=== PATIENT | female | born 1955 | race Caucasian/White ===

== ENCOUNTER 2017-01-06 05:50 | Inpatient (IN) | payer OTHER ==
--- NOTE | 2016-10-06 14:25 | NUR ---
JOINT CAMP: Patient attended [facility] joint camp, patient is coming in for a total knee replacement. Jonathan Cid patient's will be the one to help patient post discharge and he will be her transportation day of discharge. Patient has three stairs to enter the home and then none inside the home. Patient has never received HH services or been to a SNF. Patient does not need any other assistance that she can think of at this point. She is also not connected with any outpatient physical therapy.
[2017-01-06] VITALS (14 sets, daily range): BP systolic 113–149; BP diastolic 67–83; PULSE 90–123; RESP 12–18; O2SAT 93–97
[~2017-01-06] VITALS: Ht 160 cm; Wt 72.3 kg
[2017-01-06] MEDS: Lactated Ringer's 1,000 ML IV SCH ×3 (05:00→08:13)
[~2017-01-06 05:50] MED LIST: ALLO300T2 PO; ATEN25TA PO; CeFAZolin Inj 2 GM in IV Premix 1 EACH IV ONE; DIVA500T14 PO; FENT1PAT7 TRANSDERM; OXYC-474 PO; QUET200T58 PO; TRIA1TAB5 PO; Vancomycin 1 Gm/200 mL NS Premix IV ONE
[2017-01-06] MEDS ORDERED: CeFAZolin Inj 2 gm / 50mL D5W IV ONE (06:19)
--- NOTE | 2017-01-06 07:20 | PCM.HPANE ---
Patient Data Surgeon Admitting Provider: Attending Provider:Dennis Dhaliwal DO Primary Care Physician:Param Mendoza MD Other Provider:Cristopher Conklin Anesthesia Reason for Visit Left Knee Arthritis Ht/WT & BMI Height (Feet): 5 Height (Inches): 3 Weight (Kilograms): 72.3 Body Mass Index 28.00 Allergies Coded Allergies: Penicillins (Verified Allergy, Severe, RASH, 01/02/17) cyclobenzaprine (Verified Allergy, Unknown, UNKNOWN, 01/02/17) clarithromycin (Verified Adverse Reaction, Severe, N&V, 01/02/17) morphine (Verified Adverse Reaction, Severe, N&V, 01/02/17) zolpidem (Verified Adverse Reaction, Severe, PSYCHOSIS,MENTAL ISSUES, 01/02) Uncoded Allergies: CORTICOSTERIODS (Allergy, Severe, ERYTHEMA MULTIFORME, 01/02/17) Past Anesthesia History Anesthesia History: Denies:: Abnormal Airway, Anesthesia Reactions, Difficult Intubation, Fam Anesthesia Reaction, Fam Malignant Hypertherm, Malignant Hyperthermia Diabetes History Hx Diabetes?: No MRSA MRSA: No Medications Hypertension Medication: Yes (TRIAMTERENE/HCTZ) Home Meds Incl Beta Jeanette: Yes Date Beta Jeanette Taken: Jan 06, 2017 Time Beta Jeanette Taken: 0430 Reported Medications Fentanyl 25 mcg/hr Patch 1 Each Patch.[id number] Mcg TRANSDERM Q72H 10/12/16 Oxycodone (Roxicodone)5 Mg Tablet5 Mg PO TID 10/12/16 Allopurinol 300 Mg [id number] Mg PO MORNING 10/12/16 Quetiapine Fumarate 200 Mg [id number] Mg PO HS 10/12/16 Quetiapine Fumarate 200 Mg [id number] Mg PO BID 10/12/16 Divalproex ER 500 Mg Tab.er.[id number] Mg PO MORNING 10/12/16 Atenolol 25 Mg Zrgrok41 Mg PO DAILY 10/12/16 Discontinued Reported Medications Triamterene/HCTZ 75-50 mg 1 Each Tablet1 Tablet PO MORNING 10/12/16 History History of ENT Problems?: Yes HEENT History: Positive for:: Sinus Problem (SEASONAL ALLERGIES) Denies:: Abnormal Airway Difficult Intubation Dysphagia Glaucoma (HX DRY EYES,KERATOCONJUNCTIVITIS) Hearing Problem TMJ Denture Type: Full- Upper Full- Lower Hx of Heart Problems?: Yes Cardiovascular History: Positive for:: Edema (Ankle Swelling) Hypertension (HYPERLIPIDEMIA) Irregular Heartbeat (PVC's) Denies:: AICD Abdominal Aortic Aneurism Atrial Fibrillation Cardiac Surgery Chest Pain Congestive Heart Failure Heart Murmur Pacemaker Rheumatic Fever Thrombophlebitis Other Cardiac History: HX OF SEVERE THROMBOCYTOPENIA (RESOLVED)-SAW DR. GUZMAN Hx of Respiratory Problem?: No Respiratory History: Denies:: Asthma COPD Chest Surgery Dyspnea Emphysema Hemoptysis Oxygen Administration Pneumonia Pulmonary Embolism Tuberculosis Use of C-PAP Machine Hx Neurologic Problems?: Yes Neurological History: Positive for:: Dizziness (?Seizure-was in psychosis/ hospitalized 4 yrs ago on psych. unit) Seizures (? see above) Denies:: Alzheimer's Disease CVA Dementia Headaches Multiple Sclerosis Parkinson's Disease (NEW ONSET TREMOR 09/2016) Other Neurological Pertinent: HX CHRONIC PAIN Hx of GI Problems?: Yes Gastrointestinal History: Positive for:: Gall Bladder Disease (S/P JANAE) Gastroesphageal Reflux Heartburn Rectal Bleeding (HX HEMORRHOIDS) Denies:: Cirrhosis Diverticulitis (DIVERTICULOSIS) Gastrointestinal Bleeding Hepatitis Hiatal Hernia Hx of Problems?: Yes Genitourinary History: Positive for:: Kidney Stones (S/P BLADDER STONE LITHOLAPAXY) Urinary Tract Infection (Hx of) Denies:: HX of Hemodialysis HX of Peritoneal Dialysis: No Female Hx: Denies:: Currently (POST MENOPAUSE) Endometriosis Pelvic Inflammatory Problems with Breasts? Skin History: Denies:: History Skin Disorders? Pressure Ulcers Hx Musculoskeletal Problems?: Yes Musculoskeletal History: Positive for:: Degenerative Joint Joint Replacement (Current foot Problems S/P RPR) Musculoskeletal Trauma (S/P KNEE SCOPE,MULT FOOT, HAND & FINGER SURGERIES) Osteoarthritis Rheumatoid Arthritis Denies:: Back Injury Systemic Lupus Hx of Psycho/Social Problems?: Yes Psycho Social History: Positive for:: Anxiety Bipolar Disorder (HX OF HOSPITALIZATION-CURRENTLY SEEN @ [facility]) Hx Depression Denies:: Suicide Attempt Hx Surgeries?: Yes (MULT HAND,FINGER & FOOT SURGERIES,KNEE SCOPE,JANAE,HYST, PUNCTAL PLUGS,LITHO) Hx Any Other Health Problems?: Yes Other History: Positive for:: Hospitalization (Psychosis) Denies:: Cancer Endocrine Disease Thyroid Disease History Blood Transfusions: Denies:: Blood Transfusions Hx Diabetes: No Hx Alcohol Use: NoHx Substance Use: No Smoking Status: Former Smoker Have You Smoked inLast 12 mo: YesApprox How Many Cigarettes/day: 30YR HX Stop/Bang Treated for Sleep Apnea?: No Do You Have a CPAP Machine?: No S-Snoring: Do You Snore Loudly: No T-Tired: feel tired, fatigued: Yes O-Obsered: Observed not breath: No P-Blood Pressure: treated: Yes B- Body Mass Index > 35 kg/m2: No A- Age over 50: Yes N- Neck Large Circumference: No G- Gender Male: No BREEZY Total Score: 3 BREEZY Risk Assessment: Low Risk, <3 Yes Risk Assessment Category Category 1A: Patient has history of documented sleep apnea, and HAS NOT received any narcotic, sedative or anesthesia administration during this stay. Category 1B: Patient has history of documented sleep apnea, and HAS received any narcotic , sedative or anesthesia administration during this stay Category 2: Patient has SUSPECTED Obstructive Sleep Apnea, and HAS received any narcotic , sedative or anesthesia administration during this stay. Category 3: Patient has SUSPECTED Obstructive Sleep Apnea and HAS NOT received narcotic, sedative or anesthesia administration during this stay. Category 4: Outpatient in Procedural Areas with known sleep apnea or who screen positive for High Risk via the STOP/BANG questionnaire. Exam Exam Vital Signs Vital Signs Date Time Temp Pulse Resp B/P Pulse Ox O2 Delivery O2 Flow Rate FiO2 01/06/17 06:45 35.5 90 17 137/82 96 Room Air General Appearance: Oriented X3 HEENT/AIRWAY: MP 2 Lungs: Normal Air Movement Heart: Regular Rate/Rhythm Meds/Labs/Diagnostics Admission Meds Current Medications Lactated Ringer's 1,000 ml @ 120 mls/hr Q8H20M IV Last administered on 06:33; Start 01/06/17 at 05:00; Stop 01/06/17 at 13:19 Vancomycin/0.9 % Sod Chloride/ Premix (Vancomycin Inj/ IV Premix) 200 ml @ 133.333 mls/hr 01 ONCE IV Last administered on 01/06/17 06:30; Start at 01:00; Stop 01/06/17 at 02:29; Status DC Plan Impression Patient chart reviewed, patient interviewed and anesthestic plan with risks, benefits, and alternatives discussed, and informed consent obtained. NPO Status: 2330 01/05/17 ASA Physical Status: ASA2 Mod Systemic Disease Anesthetic Plan: GA, Regional Block Bene/Risks/Altern/Consents: Yes HP Complete Prior to Induction: Yes Magno Godwin MD Jan 06, 2017 07:20
[2017-01-06] MEDS ORDERED: Vancomycin 1,000 mg Inj IRRIGATION ONE (07:30)
[2017-01-06] MEDS ORDERED: Ropivacaine-PF 0.5% 30 mL Inj INFILTRATE ONE (09:45)
[2017-01-06] MEDS: 0.9% Sodium Chloride 1,000 ML IV SCH ×3 (09:56→20:00)
[2017-01-06] MEDS ORDERED: Acetaminophen IV 1,000 MG in IV Premix 1 EACH IV PRN (10:00)
[2017-01-06] MEDS ORDERED: Magnesium Hydroxide 10 mL Oral Concentration PO PRN (10:00)
[2017-01-06] MEDS ORDERED: Polyethylene Glycol (PEG) 17 Gm Powder PO PRN (10:00)
[2017-01-06] MEDS ORDERED: diphenhydrAMINE 25 mg Capsule PO PRN (10:00)
[2017-01-06] MEDS ORDERED: HYDROmorphone 1 mg/mL Inj IVPUSH PRN ×2 (10:00→10:25)
[2017-01-06] MEDS ORDERED: Ondansetron 2 mg/mL 2 mL Inj IVPUSH PRN ×2 (10:00→10:25)
[2017-01-06] MEDS ORDERED: Labetalol 5 mg/mL 4 mL Inj IV PRN (10:25)
[2017-01-06] MEDS ORDERED: Lactated Ringer's 1,000 ML IV SCH (10:25)
[2017-01-06] MEDS ORDERED: MetoCLOpramide 5 mg/mL 2 mL Inj IVPUSH PRN (10:25)
[2017-01-06] MEDS ORDERED: Phenylephrine 10,000 mCg/mL Inj IVPUSH PRN (10:25)
[2017-01-06] MEDS ORDERED: Lactated Ringer's 500 ML IV PRN (10:25)
[2017-01-06] MEDS ORDERED: EPHEDrine Sulfate 50 mg/mL Inj IVPUSH PRN (10:25)
[2017-01-06] MEDS: fentaNYL-PF 50 mCg/mL 2 mL Inj IVPUSH PRN ×2 (10:30→10:47)
--- NOTE | 2017-01-06 10:35 | DRSVH ---
PROCEDURE: X-RAY LEFT KNEE, ONE OR TWO VIEWS ([id number]) INDICATIONS: post op TECHNIQUE: 2 view(s) of the knee acquired. COMPARISON: 03/01/2015 FINDINGS: Bones: Patient is status post knee joint arthroplasty. Hardware components are in expected position s. Visualized bony structures are intact. Soft tissues: Overlying postoperative changes are noted. Anterior dressing artifact. IMPRESSION: Acute postoperative changes of total left knee arthroplasty with expected appearance. Dictated by: Hernandez Ortiz M.D. on 01/06/2017 at 10:33 Approved by: Hernandez Ortiz M.D. on 01/06/2017 at 10:33
--- NOTE | 2017-01-06 10:41 | PCM.ANEP1 ---
Post Anesthesia Phase 1 PACU Phase 1 Assessment Vital Signs Vital Signs Date Time Temp Pulse Resp B/P Pulse Ox O2 Delivery O2 Flow Rate FiO2 01/06/17 10:15 99 17 138/76 97 Nasal Cannula 4 01/06/17 10:10 100 13 131/77 95 Simple Mask 10 01/06/17 10:05 100 12 115/80 93 Simple Mask 10 01/06/17 10:00 36.9 99 15 129/82 94 Simple Mask 10 01/06/17 06:45 35.5 90 17 137/82 96 Room Air Anesthetic Administered: GA Level of Alertness: Awake, talking Pain: No Nausea or Vomiting: No Oxygen Delivery: Room Air Lungs: Normal Air Movement Magno Godwin MD Jan 06, 2017 10:41
--- NOTE | 2017-01-06 10:42 | PCM.ANEP2 ---
Post Anesthesia Evaluation ASA/CMS Post Anesthesia VS in Patient's Normal Range?: Yes Resp Stable; Airway Patent?: Yes CV Function & Hydration Stable: Yes Mental Status Recovered?: Yes Pain control Satisfactory?: Yes N/V Control Satisfactory?: Yes Magno Godwin MD Jan 06, 2017 10:42
--- NOTE | 2017-01-06 11:00 | OP ---
[address] [address] OPERATIVE REPORT PATIENT: HUSAM GARCIA : 1955 MR#: [id number] ADMIT: 01/06/2017 JOB ID: [id number] DATE OF SURGERY: 01/06/2017 PREOPERATIVE DIAGNOSIS(ES): Left knee degenerative joint disease. POSTOPERATIVE DIAGNOSIS(ES): Left knee degenerative joint disease. PROCEDURE: Left total knee arthroplasty. SURGEON: Dennis Dhaliwal DO. ASSISTANTS: Idalia Lozano PA-C and Ce Martins DO. INDICATIONS: The patient is a 61-year-old female with left knee severe degenerative joint disease with failed conservative measures and wished to proceed with a left total knee arthroplasty. We discussed the risks, benefits, and possible complications of surgery including, but not limited to, injury to nerves and vessels, infection, bleeding, incomplete relief of symptoms, stiffness, need for additional procedures. The patient had good understanding. All questions were answered. She wished to proceed. We also had a preoperative evaluation to deal with her thrombocytopenia, which is now resolved and normalized, and her other comorbidities. A surgical supplies sterilizer was required for the successful completion of this procedure. PROCEDURE IN DETAIL: The patient was brought to the operating room. She was given a preoperative antibiotic, as well as 1 g TXA preop. The left knee was sterilely prepped and draped, and a tourniquet was used. An incision was made over the anteromedial knee. Dissection was carefully carried through subcutaneous tissue. Electrocautery was used for hemostasis. A split was then made in the quad tendon leaving a cuff of tissue for repair. This was taken along the medial retinaculum and down onto the proximal medial tibial face. A small amount of subperiosteal medial release was performed and then the patella was everted. A portion of the fat pad was removed. The femur was instrumented with the intramedullary guide romelia. I then placed the distal femoral cutting block with a 5-degree distal valgus cut angle and 10 mm planned resection. The block was pinned into position. The cut was performed. Then, I went into the tibia. Using an extramedullary tibial cutting guide, placed this parallel to the long axis of the tibia. Pinned it into position. The cut was performed. I then used a spacer block and felt that we were a bit tight in extension, so two additional mm of distal femur were resected. Next, the femur was sized, felt to be a size 5, perhaps 5 narrow, and 5 degrees external rotation was dialed into the femur in order to match the tibia. The femoral pins were placed, and the distal femoral cutting guide was then placed. The form one cuts were performed and the knee was then trialed, having good full flexion and full extension, with equal gaps medially and laterally. The box cut was performed, and the menisci were removed as well. Again, trials were performed, allowed for full flexion and full extension, with equal gaps. The patella was resurfaced with a free hand type technique, cut from initial thickness of 22 to a thickness of 13. A small partial-thickness lateral release was also performed in order to help the patella track better, and the button was drilled for and trialed and had excellent tracking with 35 mm patellar button. The femur was drilled. The tibia was drilled and punched. The bony surfaces were washed, and the components were cemented into position beginning with the DePuy Attune 3 tibia, followed by the DePuy Attune 5 narrow, fixed bearing femur, followed by the 35 mm patellar button. We elected to use a 6 mm poly, and this was impacted into position after the cement had been allowed to polymerize. The tourniquet was let down. A second gram of TXA was infused, and electrocautery was used for hemostasis. The wound was irrigated and then closed with interrupted #1 Surgilon to close the capsule. Some additional #1 Vicryl was used at either end. The subcu was closed with a running 2-0 V-Loc, and the skin was closed with a running subcuticular 3-0 V-Loc suture. Naropin was added as an adjunct local anesthetic. Sterile dressings were applied. Patient tolerated the procedure well. Blood loss was 50 cc. POSTOPERATIVE PROTOCOL: Have the patient weightbear to tolerance, use a walker for ambulation. I would like her to start ambulation on postop day zero. She will be placed on Percocet 10/325 for pain, as she chronically takes Percocet 5/325, and we will continue with her fentanyl patch. Plan to use aspirin for DVT prophylaxis, as she has a history of thrombocytopenia.
[2017-01-06] MEDS ORDERED: Lactated Ringer's 1,000 ML IV ONE (14:01)
[2017-01-06] MEDS ORDERED: hydrOXYzine Pamoate 25 mg Capsule ONE (14:07)
--- NOTE | 2017-01-06 15:05 | NUR ---
Arrived on Unit Patient arrived on floor from Day surgery in stable condition. Transported in bed. A&Ox3. Reported 8/10 knee pain. 10 mg of Oxycodone given. Denies nausea at this time. Dressing CDI. at bedside. Patient orientated to call light, bed, and visiting hours. Call light and tray table within reach. Will continue to monitor patient hourly.
[2017-01-06] MEDS ORDERED: MetoCLOpramide 5 mg/mL 2 mL Inj ONE (15:36)
[2017-01-06] MEDS ORDERED: Propofol 10,000 mCg/mL 20 mL Inj ONE (15:36)
[2017-01-06] MEDS ORDERED: HYDROmorphone 2 mg/mL Inj ONE (15:36)
[2017-01-06] MEDS ORDERED: Ondansetron 2 mg/mL 2 mL Inj ONE (15:36)
[2017-01-06] MEDS ORDERED: fentaNYL-PF 50 mCg/mL 2 mL Inj ONE (15:36)
[2017-01-06] MEDS: Sodium Chloride LOK Flush 10 mL Syringe IV SCH (16:30)
[2017-01-06] MEDS: CeFAZolin Inj 2 GM in IV Premix 1 EACH IV SCH ×2 (16:43→23:42)
[2017-01-06] MEDS: hydrOXYzine Pamoate 25 mg Capsule PO PRN (20:33)
[2017-01-06] MEDS: Senna-Docusate 8.6-50 mg Tablet PO SCH (20:33)
[2017-01-06] MEDS: oxyCODONE-Acetamin 10-325 mg Tablet PO PRN ×2 (20:34→23:43)
[2017-01-06] MEDS ORDERED: QUEtiapine 300 MG, QUEtiapine 100 MG PO SCH ×2 (21:00)
[2017-01-07] MEDS: Sodium Chloride LOK Flush 10 mL Syringe IV SCH ×3 (00:30→17:48)
--- NOTE | 2017-01-07 02:34 | NUR ---
PAIN: Pt. has been c/o knee pain rated bet. 6 and 8/10. Given IV Toradol, Percocet, Vistaril, Roxicodone, IV Tylenol. Wants all prn meds to be given on time as if on schedule. The lowest reported pain was 5/10, states it feels more like "sore" pain. Wants to be awaken during the night for her pain medications. Keeping ice on affected knee. Has been up to the bathroom for voiding. Able to ambulate with the FWW and one person SBA. Pt. cont. to be tachy. Pulse in the low 100s. On going care.
[2017-01-07] MEDS: hydrOXYzine Pamoate 25 mg Capsule PO PRN ×3 (04:52→21:59)
[2017-01-07] MEDS: oxyCODONE-Acetamin 10-325 mg Tablet PO PRN ×5 (04:53→21:42)
[2017-01-07 04:58] VITALS: BP 120/74; PULSE 99; RESP 17; O2SAT 96
[2017-01-07] MEDS: 0.9% Sodium Chloride 1,000 ML IV SCH ×2 (05:56→15:25)
[2017-01-07 06:05] LABS: BASOPHILS % (AUTO) 0.2 % (0-3); EOSINOPHILS % (AUTO) 0.6 % (0-5); MONOCYTES % (AUTO) 12.6 % (4-12); Mean Corpuscular Hemoglobin 32.9 pg (27.0-35.0); NEUTROPHILS % (AUTO) 48.9 % (40-74); Platelet Count 187 bil/L (150-400)
[2017-01-07] MEDS: Divalproex (QD) 500 mg ER24 Tablet PO SCH (08:36)
[2017-01-07] MEDS: Senna-Docusate 8.6-50 mg Tablet PO SCH ×2 (08:36→20:30)
--- NOTE | 2017-01-07 09:16 | PCM.PNORTH ---
Subjective Date of Service: Jan 07, 2017 Visit Information: Reason for Visit Left Knee Arthritis Surgery/Surgery Date Post-Op Day # Date of Admission: Jan 06, 2017 at 15:35 Hospital Day # Subjective Status post day #1 left total knee arthroplasty. Patient states she is doing pretty well. Her pain is well controlled on the fentanyl patch and Percocet. She is also using Vistaril and Toradol. She does state that her calf has been a little sore. She was up with physical therapy yesterday and walked approximately 20 steps, has also been up to the bathroom already this morning. Postop General: No Complaints, No Shortness of Breath, No Chest Pain Objective Exam Objective Patient is alert and oriented 3. Answering questions appropriately. Sitting up in bed and not in any acute distress today. Dressing is clean dry and intact. Patient able to wiggle toes. Calf is soft and slightly tender, but with dorsiflexion and aggressive toe lift both passively and actively she has no discomfort, pulses intact, sensation is full. Vital Signs and I/O Vital Sign - Last Date Time Temp Pulse Resp B/P Pulse Ox O2 Delivery O2 Flow Rate FiO2 01/07/17 04:58 36.8 99 17 120/74 96 Room Air 01/06/17 11:05 3 Intake and Output 01/06/17 01/06/17 01/07/17 Cumulative From/Thru 15:00 23:00 07:00 01/02/17 08:47 - 01/07/17 05:00 Intake Total 1270 ml 400 ml 1661 ml 3731 ml Output Total 20 ml 950 ml 970 ml Balance 1250 ml 400 ml 711 ml 2761 ml Intake Oral 400 ml 1038 ml 1438 ml IV Total 1270 ml 623 ml 2293 ml Output Urine Total 950 ml 950 ml Estimated Blood Loss 20 ml 20 ml # Bowel Movements 0 0 Lab & Micro Results Laboratory Tests Test 01/07/17 05:15 White Blood Count 4.7th/mm3 (3.8-10.1) Red Blood Count 3.04mil/mm3 (3.90-5.20) Hemoglobin 10.0g/dL (12.0-15.6) Hematocrit 30.4% (35.0-46.0) Mean Corpuscular Volume 100.0fL (81-100) Mean Corpuscular Hemoglobin 32.9pg (27.0-35.0) Mean Corpuscular Hemoglobin Concent 32.9% (32.0-37.0) Red Cell Distribution Width 14.0% (12.3-15.4) Platelet Count 187bil/L (150-400) Neutrophils (%) (Auto) 48.9% (40-74) Lymphocytes (%) (Auto) 37.7% (14-46) Monocytes (%) (Auto) 12.6% (4-12) Eosinophils (%) (Auto) 0.6% (0-5) Basophils (%) (Auto) 0.2% (0-3) Sodium Level 141mEq/L (134-144) Potassium Level 3.9mEq/L (3.5-5.2) Chloride Level 101mEq/L (97-108) Carbon Dioxide Level 29mmol/L (18-29) Blood Urea Nitrogen 23mg/dL (6-24) Creatinine 1.08mg/dL (0.57-1.00) Estimat Glomerular Filtration Rate 74mL/min (>59) Glucose Level 116mg/dL (60-99) Calcium Level 8.5mg/dL (8.5-10.1) Result Diagram: 01/07/17 0515 01/07/17 0515 Assessment & Plan Impression Status post day #1 left total knee arthroplasty. Patient doing well, pain is well-controlled with current regimen. Optimistic that she will be able to go home with her in 1-2 days. Problems: Plan Patient will be weightbearing as tolerated with wheeled walker and will work with physical therapy while here in the hospital. Patient will need to continue outpatient physical therapy next week as well. Patient will utilize aspirin 325 mg by mouth twice a day for 6 weeks for DVT prophylaxis. Patient currently taking Percocet 10/325 mg tablets as well as fentanyl patch for pain control, we will use Vistaril and Toradol as needed while in the hospital to supplement this pain control as patient is on chronic Percocet 5/ 325 mg tablets. Anticipate the patient will remain in the hospital for 1-2 more days and discharged home in the care of her . Rick Malik PA-C Jan 07, 2017 09:16
[2017-01-07 11:17] VITALS: BP 124/71; PULSE 94
[2017-01-07 11:18] VITALS: BP 124/71; PULSE 94; RESP 18; O2SAT 94
--- NOTE | 2017-01-07 14:37 | NUR ---
Social Work-assessment/readiness for discharge: Data:EMR Reviewed. Pt us a 61 y/o female who was admitted on 01/06/17 for left knee arthritis per H&P. Pt's insurance is [employer] and PCP is Param Mendoza MD. EMR reviewed. Pt's readmission score is 4-high risk. SW met with pt at bedside, SW role explained. Pt is alert and oriented x3. Pt resides at home with her Jonathan, who came in during discussion. Pt is independent at baseline and has been cleared by PT for home with outpt PT services. Pt states she already has fww and outpt services set up. SW discussed DPOA/ advanced directive, pt states she has not completed this, information provided. Pt's to provide transport home at discharge. Phone number and plan written on white board in room. No anticipated discharge needs. SW will continue to follow if needs arise. Assessment:Pt who is independent at baseline. Plan:Pt to discharge home when medically stable via POV. PT has cleared pt for outpt Pt, which pt has already set up. No anticipated discharge needs. SW will continue to follow if needs arise. Sade Goodman,EDUCATION DEPARTMENT REGISTRAR
[2017-01-07 17:11] VITALS: BP 91/59; PULSE 94; RESP 16; O2SAT 94
--- NOTE | 2017-01-07 18:34 | NUR ---
Activity Pt up with PT this shift, ambulating in hallway and she states she did the stairs. Pain has been well controlled with percocet and vistaril. Fentanyl patch changed this shift. Reminding Pt to call for assist before getting up
[2017-01-07 19:30] VITALS: BP 113/70; PULSE 97; RESP 17; O2SAT 96
[2017-01-08] MEDS: 0.9% Sodium Chloride 1,000 ML IV SCH (01:56)
--- NOTE | 2017-01-08 02:24 | NUR ---
Pain Patient concerned about getting pain in control. States that pain is 6/10 on pain scale. Pain medication administered. Patient resting after administration of toradol . VSS. Call light within reach. Care continues.
[2017-01-08 04:47] VITALS: BP 102/66; PULSE 90; RESP 17; O2SAT 95
[2017-01-08] MEDS: oxyCODONE-Acetamin 10-325 mg Tablet PO PRN ×2 (05:10→08:11)
[2017-01-08] MEDS: hydrOXYzine Pamoate 25 mg Capsule PO PRN (05:10)
[2017-01-08] MEDS: Sodium Chloride LOK Flush 10 mL Syringe IV SCH ×2 (05:11→08:08)
[2017-01-08 05:42] LABS: BASOPHILS % (AUTO) 0.2 % (0-3); MONOCYTES % (AUTO) 10.9 % (4-12); Mean Corpuscular Hemoglobin 32.7 pg (27.0-35.0); Mean Corpuscular Volume 100.7 fL (81-100); NEUTROPHILS % (AUTO) 59.2 % (40-74); Platelet Count 180 bil/L (150-400)
--- NOTE | 2017-01-08 06:33 | PCM.PNORTH ---
Subjective Date of Service: Jan 08, 2017 Visit Information: Reason for Visit Left Knee Arthritis Surgery/Surgery Date Post-Op Day # Date of Admission: Jan 06, 2017 at 15:35 Hospital Day # Subjective The patient sleeping and easily awaken this morning. No complaints of pain at this time. Discussed patient's performance with therapy and the fact that she may discharge to home today. Patient indicated she wanted to consider waiting and discharging tomorrow and I have advised her that based on her performance and condition we can discharge today when her is home from work. Patient has a few steps to her home and has already worked with therapy on this. Patient also indicates she has set up for outpatient physical therapy to begin next week. Postop General: No Complaints, No Shortness of Breath, No Chest Pain Pain Management: PO Objective Exam Objective Orientation: Alert and oriented 3 and pleasant. Dressing: Interoperative dressing clean dry and intact. Interoperative dressing is changed to postoperative dressing this morning. Wound: Surgical incision wound is in good condition with no focal erythema swelling or drainage. Compartments: Calf and thigh are soft and nontender. Left foot is moderately swollen and patient indicates this is a normal condition for her. Mobility/sensation: We will and sensation are intact that left lower extremity distally. SIRISHA hose: None. Ewing: Absent Drain: Absent Gait: Gait 150 feet with physical therapy yesterday onto 2016. Patient is also past sterile training. Recommendation is for discharge to home with outpatient PT. Vital Signs and I/O Vital Sign - Last Date Time Temp Pulse Resp B/P Pulse Ox O2 Delivery O2 Flow Rate FiO2 01/08/17 04:47 36.4 90 17 102/66 95 Room Air 01/06/17 11:05 3 Intake and Output 01/07/17 01/07/17 01/08/17 Cumulative From/Thru 15:00 23:00 07:00 01/02/17 08:47 - 01/08/17 04:47 Intake Total 1016 ml 800 ml 5547 ml Output Total 550 ml 1520 ml Balance 1016 ml 250 ml 4027 ml Intake Oral 1016 ml 800 ml 3254 ml IV Total 2293 ml Output Urine Total 550 ml 1500 ml Estimated Blood Loss 20 ml # Voids 4 4 # Bowel Movements 1 0 1 Lab & Micro Results Laboratory Tests Test 01/08/17 05:10 White Blood Count 6.1th/mm3 (3.8-10.1) Red Blood Count 2.94mil/mm3 (3.90-5.20) Hemoglobin 9.6g/dL (12.0-15.6) Hematocrit 29.6% (35.0-46.0) Mean Corpuscular Volume 100.7fL (81-100) Mean Corpuscular Hemoglobin 32.7pg (27.0-35.0) Mean Corpuscular Hemoglobin Concent 32.4% (32.0-37.0) Red Cell Distribution Width 14.3% (12.3-15.4) Platelet Count 180bil/L (150-400) Neutrophils (%) (Auto) 59.2% (40-74) Lymphocytes (%) (Auto) 28.5% (14-46) Monocytes (%) (Auto) 10.9% (4-12) Eosinophils (%) (Auto) 1.0% (0-5) Basophils (%) (Auto) 0.2% (0-3) Sodium Level 141mEq/L (134-144) Potassium Level 3.9mEq/L (3.5-5.2) Chloride Level 102mEq/L (97-108) Carbon Dioxide Level 29mmol/L (18-29) Blood Urea Nitrogen 29mg/dL (6-24) Creatinine 1.01mg/dL (0.57-1.00) Estimat Glomerular Filtration Rate 80mL/min (>59) Glucose Level 114mg/dL (60-99) Calcium Level 8.3mg/dL (8.5-10.1) Result Diagram: 01/08/17 0510 01/08/17 0510 General Appearance: Alert, Oriented X3, Cooperative, No Acute Distress Extremities: No Compartment Syndrom Noted, Thigh & Calf Soft/Nontender Postop Sensory Motor: Distal Motor Intact, Movement in Toes, Distal Sensation Intact Activity: Activity per PT, Ambulate with PT (weightbearing as tolerated on left lower extremity using front wheeled walker) Catheters: None Assessment & Plan Impression Patient is a 61-year-old female who is undergone elective left total knee arthroplasty on 01/06/2017. She has performed well with formal physical therapy and has received recommendation for discharge to home. Patient uses chronic Percocet 5 and is currently controlled on Percocet 10 and Vistaril. Problems: Plan Postop day # 2 from left total knee arthroplasty performed on 01/06/[address] Dennis Dhaliwal. Weight bearing status: Weightbearing as tolerated on the left lower extremity Mobility aid: Front wheeled walker Immobilization: None Precautions: Standard postoperative precautions with operative wet process assistant head miller toe cleared for independent ambulation by therapy. Physical therapy: Continue formal physical therapy for mobility, gait and safety while patient is in-house. Patient does have outpatient formal physical therapy arranged to begin soon after discharge. Patient does have 1-2 steps at her home and has succeeded in stair training and has received recommendation for discharge to home. Pain control: Continue by mouth pain control with Percocet 10 and Vistaril. DVT prophylaxis: Continue DVT prophylaxis with ASA 325 mg EC by mouth twice a day 6 weeks postop. Wound care: Keep wound clean dry and covered until seen in office in 2 weeks. Ewing: Absent Dressing: Interoperative dressing is clean dry and intact. Interoperative dressing is changed to postoperative dressing with Silverlon and wound is found to be in good condition. Patient is given several extra manages for home use this morning. Drain: Absent SIRISHA hose: None. Bilateral thigh-high SIRISHA hose will be ordered today. Nursing communication: Nursing please maintain patient on by mouth pain medication in anticipation of discharge later this afternoon after her has returned home from work. 2-week follow-up: Follow-up in 2 weeks at [facility] orthopedic clinic on prearranged appointment with medical provider for wound check and suture removal. 6-week follow-up: Follow-up in 6 weeks at [facility] orthopedic clinic on prearranged appointment with Dr. Dennis Dhaliwal with left two-view knee x-rays on arrival. Plan: Anticipate discharge today on postoperative day 2, 01/08/2017 to home with spouse as caregiver. Discharge instructions: Weightbearing as tolerated on the left lower extremity using front-wheeled walker. Begin formal outpatient physical therapy as soon as possible after discharge. Keep wound clean dry and covered until seen in office in 2 weeks. Work on gentle range of motion at the knee. Patient may bathe on postop day #4 if wound is clean and dry with no drainage. Do not scrub the wound and pat dry after shower. Do not soak the wound in a bathtub, hot or pool. Discharge plan: Anticipate discharge today on postop day 2, 01/08/2017 to home with her as caregiver in the late p.m. after her returns home from work. VTE Prophylaxis: SCDs (SCD at right lower extremity), SIRISHA Hose (bilateral thigh -high SIRISHA hose), Other (ASA 325 EC by mouth twice a day 6 weeks for postoperative DVT prophylaxis) Bakari Sherman PA-C Jan 08, 2017 06:33
--- NOTE | 2017-01-08 06:36 | PCM.DIORTH ---
Ortho Discharge Instruction Date of Service: Jan 08, 2017 Dates of Hospitalization Date of Hospital Admission Jan 06, 2017 at 15:35 Providers Admitting Physician: Dennis Dhaliwal DO Primary Care Physician: Param Mendoza MD Attending Physician: Dennis Dhaliwal DO Diet Discharge Diet: No restrictions Activity Discharge Activity-General: Be up and about, Balance rest and activity, Ice incision 3-5 time/day for 20min, Activity as pain allows, Activity as energy allows, No driving while taking narcotic Left Lower Extremity: Weight Bearing as tolerated Discharge Assist Device: Front Wheeled Walker Dressing and Incisional Care Discharge Dressing Care: Keep dressing clean, dry & intact, Change soiled dressing Discharge Hygiene: May shower (patient may shower on postop day #4 if wound is clean and dry.), DO NOT soak incision under water, NO bathtub, hot tub or whirlpool Additional Instructions Discharge Instructions Postop day # 2 from left total knee arthroplasty performed on 01/06/[address] Dennis Dhaliwal. Weight bearing status: Weightbearing as tolerated on the left lower extremity Mobility aid: Front wheeled walker Immobilization: None Precautions: Standard postoperative precautions with operative team assistant toe cleared for independent ambulation by therapy. Physical therapy: Continue formal physical therapy for mobility, gait and safety while patient is in-house. Patient does have outpatient formal physical therapy arranged to begin soon after discharge. Patient does have 1-2 steps at her home and has succeeded in stair training and has received recommendation for discharge to home. Pain control: Continue by mouth pain control with Percocet 10 and Vistaril. DVT prophylaxis: Continue DVT prophylaxis with ASA 325 mg EC by mouth twice a day 6 weeks postop. Wound care: Keep wound clean dry and covered until seen in office in 2 weeks. Ewing: Absent Dressing: Interoperative dressing is clean dry and intact. Interoperative dressing is changed to postoperative dressing with Silverlon and wound is found to be in good condition. Patient is given several extra manages for home use this morning. Drain: Absent SIRISHA hose: None. Bilateral thigh-high SIRISHA hose will be ordered today. Nursing communication: Nursing please maintain patient on by mouth pain medication in anticipation of discharge later this afternoon after her has returned home from work. 2-week follow-up: Follow-up in 2 weeks at [facility] orthopedic clinic on prearranged appointment with medical provider for wound check and suture removal. 6-week follow-up: Follow-up in 6 weeks at [facility] orthopedic clinic on prearranged appointment with Dr. Dennis Dhaliwal with left two-view knee x-rays on arrival. Plan: Anticipate discharge today on postoperative day 2, 01/08/2017 to home with spouse as caregiver. Discharge instructions: Weightbearing as tolerated on the left lower extremity using front-wheeled walker. Begin formal outpatient physical therapy as soon as possible after discharge. Keep wound clean dry and covered until seen in office in 2 weeks. Work on gentle range of motion at the knee. Patient may bathe on postop day #4 if wound is clean and dry with no drainage. Do not scrub the wound and pat dry after shower. Do not soak the wound in a bathtub, hot or pool. Discharge plan: Anticipate discharge today on postop day 2, 01/08/2017 to home with her as caregiver in the late p.m. after her returns home from work. Follow Up Plan Follow Up Plan Patient will be seen at 2 weeks, 6 weeks and 12 weeks postoperatively. Patient will be seen when necessary in the interim. Follow-up Provider (F9): Dennis Dhaliwal DO Follow-up appointment: Weeks (Patient will be seen at 2 weeks, 6 weeks and 12 weeks postoperatively. Patient will be seen when necessary in the interim.) Call your provider for: Fever, Chills, Shortness of breath, Vomitting, Drainage at incision Bakari Sherman PA-C Jan 08, 2017 06:36
[2017-01-08] MEDS ORDERED: HYDR-3797 PO (06:41)
[2017-01-08] MEDS ORDERED: OXYC-466 PO (06:41)
[2017-01-08] MEDS ORDERED: Aspirin-Expunged Drug, Do Not Renew! PO (06:41)
--- NOTE | 2017-01-08 06:44 | PCM.DC.ORT ---
Discharge Summary Date of Service: Jan 08, 2017 Date of Hospital Admission: Jan 06, 2017 at 15:35 Date of Surgery: Jan 06, 2017 Date of Discharge: Jan 08, 2017 Reason for Hospitalization: Severe left knee osteoarthritis Procedures Performed: Left total knee arthroplasty Hospital Course: Patient was admitted to the preoperative care unit on 01/06/2017 and upon processing was taken to the operating room where her procedure was performed without incident. Patient was then awakened and taken to the postoperative care unit and upon recovery from anesthesia was transferred to the orthopedic care unit where she performed well with physical therapy and received a recommendation for discharge to home on postop day #2. Problems: (1) Osteoarthritis Status: Acute ICD Code: M19.90 Disposition: Discharged to home with spouse as caregiver on 01/08/2017. Orthopedic Follow up Plan: In Two Weeks in my clinic (Patient will be seen at 2 weeks, 6 weeks and 12 weeks postoperatively. Patient will be seen when necessary in the interim.) Discharge Instructions: Postop day # 2 from left total knee arthroplasty performed on 01/06/[address] Dennis Dhaliwal. Weight bearing status: Weightbearing as tolerated on the left lower extremity Mobility aid: Front wheeled walker Immobilization: None Precautions: Standard postoperative precautions with operative casting assistant toe cleared for independent ambulation by therapy. Physical therapy: Continue formal physical therapy for mobility, gait and safety while patient is in-house. Patient does have outpatient formal physical therapy arranged to begin soon after discharge. Patient does have 1-2 steps at her home and has succeeded in stair training and has received recommendation for discharge to home. Pain control: Continue by mouth pain control with Percocet 10 and Vistaril. DVT prophylaxis: Continue DVT prophylaxis with ASA 325 mg EC by mouth twice a day 6 weeks postop. Wound care: Keep wound clean dry and covered until seen in office in 2 weeks. Ewing: Absent Dressing: Interoperative dressing is clean dry and intact. Interoperative dressing is changed to postoperative dressing with Silverlon and wound is found to be in good condition. Patient is given several extra manages for home use this morning. Drain: Absent SIRISHA hose: None. Bilateral thigh-high SIRISHA hose will be ordered today. Nursing communication: Nursing please maintain patient on by mouth pain medication in anticipation of discharge later this afternoon after her has returned home from work. 2-week follow-up: Follow-up in 2 weeks at [facility] orthopedic clinic on prearranged appointment with medical provider for wound check and suture removal. 6-week follow-up: Follow-up in 6 weeks at [facility] orthopedic clinic on prearranged appointment with Dr. Dennis Dhaliwal with left two-view knee x-rays on arrival. Plan: Anticipate discharge today on postoperative day 2, 01/08/2017 to home with spouse as caregiver. Discharge instructions: Weightbearing as tolerated on the left lower extremity using front-wheeled walker. Begin formal outpatient physical therapy as soon as possible after discharge. Keep wound clean dry and covered until seen in office in 2 weeks. Work on gentle range of motion at the knee. Patient may bathe on postop day #4 if wound is clean and dry with no drainage. Do not scrub the wound and pat dry after shower. Do not soak the wound in a bathtub, hot or pool. Discharge plan: Anticipate discharge today on postop day 2, 01/08/2017 to home with her as caregiver in the late p.m. after her returns home from work. Management Plan: Patient will be seen at 2 weeks, 6 weeks and 12 weeks postoperatively. Patient will be seen when necessary in the interim. ([Aspirin-Expunged Drug, Do Not Renew!]) 325 MG TABLET 325 MG PO BID Allopurinol (Allopurinol) 300 Mg Tablet 300 MG PO MORNING Atenolol (Atenolol) 25 Mg Tablet 25 MG PO DAILY Divalproex ER (Divalproex ER) 500 Mg Tab.er.24h 500 MG PO MORNING Fentanyl 25 mcg/hr Patch (Fentanyl 25 mcg/hr Patch) 1 Each Patch.td72 25 MCG TRANSDERM Q72H Hydroxyzine Pamoate (HydrOXYzine Pamoate) 25 Mg Capsule 25 MG PO Q6H PRN PRN restlessness Quetiapine Fumarate (Quetiapine Fumarate) 200 Mg Tablet 200 MG PO BID Quetiapine Fumarate (Quetiapine Fumarate) 200 Mg Tablet 400 MG PO HS oxyCODONE-Acetaminophen 10-325 mg (oxyCODONE-Acetaminophen 10-325 mg) 1 Each Tablet 1 TAB PO Q4-6H PRN PRN For Pain Bakari Sherman PA-C Jan 08, 2017 06:44
[2017-01-08 07:45] VITALS: BP 126/66; RESP 16; O2SAT 93
[2017-01-08 08:00] VITALS: PULSE 100
[2017-01-08] MEDS: Senna-Docusate 8.6-50 mg Tablet PO SCH (08:10)
[2017-01-08] MEDS: Divalproex (QD) 500 mg ER24 Tablet PO SCH (08:10)
--- NOTE | 2017-01-08 10:12 | NUR ---
Discharge Pt was discharged from room 1002 at 1012 via private vehicle home with family. Pt has pre-scheduled apts with [facility] and outpt PT. Connor hosraymon ordered to size. Pt stated that she will put them on when she gets home, as she is already dressed. IV d/c'd intact. Hard copy of RX with pt. No items in the safe and no items in the pharmacy. All discharge teaching and instructions done with at bedside. Pt to take pain medications as prescribed and instructed not to drive while taking narcotics. All questions answered.
== END 2017-01-08 10:11 | disposition home or self-care (01) | DRG 470 ==
LOC: SAS 05:50 → OSC 15:35 → UNDOADMIN 15:43
PROVIDERS: ADMIT Orthopaedic Surgery; ATTEND Orthopaedic Surgery
PROC: 0SRD0J9 Replacement of Left Knee Joint with Synthetic Substitute, Cemented, Open Approach (ICD-10-PCS; principal; 2017-01-06 07:30)
DX: M17.12 Unilateral primary osteoarthritis, left knee (principal); I10 Essential (primary) hypertension; M06.9 Rheumatoid arthritis, unspecified; Z87.891 Personal history of nicotine dependence

== ENCOUNTER 2017-02-17 13:12 | Day surgery (SDC) | payer OTHER ==
[2017-02-17] VITALS (8 sets, daily range): BP systolic 112–130; BP diastolic 66–74; PULSE 72–82; RESP 11–18; O2SAT 94–100
[~2017-02-17] VITALS: Ht 160 cm; Wt 72.0 kg
[~2017-02-17 13:12] MED LIST changes: +Aspirin-Expunged Drug, Do Not Renew! PO; -CeFAZolin Inj 2 GM in IV Premix 1 EACH IV ONE; +HYDR-3797 PO; +OXYC-466 PO; -OXYC-474 PO; -TRIA1TAB5 PO; -Vancomycin 1 Gm/200 mL NS Premix IV ONE
[2017-02-17] MEDS ORDERED: ANTIOBIOTIC PO (13:31)
[2017-02-17] MEDS ORDERED: CeFAZolin Inj 2 gm / 50mL D5W IV ONE (14:07)
[2017-02-17] MEDS ORDERED: Lactated Ringer's 1,000 ML IV ONE (14:11)
[2017-02-17] MEDS ORDERED: Lactated Ringer's 1,000 ML IV SCH (14:30)
[2017-02-17] MEDS ORDERED: Labetalol 5 mg/mL 4 mL Inj IV PRN (14:30)
[2017-02-17] MEDS ORDERED: fentaNYL-PF 50 mCg/mL 2 mL Inj IVPUSH PRN (14:30)
[2017-02-17] MEDS ORDERED: EPHEDrine Sulfate 50 mg/mL Inj IVPUSH PRN (14:30)
[2017-02-17] MEDS ORDERED: Lactated Ringer's 500 ML IV PRN (14:30)
[2017-02-17] MEDS ORDERED: Dexamethasone 4 mg/mL Inj IVPUSH PRN (14:30)
[2017-02-17] MEDS ORDERED: Phenylephrine 10,000 mCg/mL Inj IVPUSH PRN (14:30)
[2017-02-17] MEDS ORDERED: MetoCLOpramide 5 mg/mL 2 mL Inj IVPUSH PRN (14:30)
[2017-02-17] MEDS ORDERED: Ondansetron 2 mg/mL 2 mL Inj IVPUSH PRN (14:30)
--- NOTE | 2017-02-17 14:30 | PCM.HPANE ---
Patient Data Surgeon Admitting Provider: Attending Provider:Dennis Dhaliwal DO Primary Care Physician:Param Mendoza MD Other Provider: Reason for Visit Left Knee Suture Abcess Ht/WT & BMI Height (Feet): 5 Height (Inches): 3 Weight (Kilograms): 72 Body Mass Index 28.00 Allergies Coded Allergies: Penicillins (Verified Allergy, Severe, RASH, 01/02/17) cyclobenzaprine (Verified Allergy, Unknown, NAUSEA, 02/17/17) clarithromycin (Verified Adverse Reaction, Severe, N&V, 01/02/17) morphine (Verified Adverse Reaction, Severe, N&V, 01/02/17) zolpidem (Verified Adverse Reaction, Severe, PSYCHOSIS,MENTAL ISSUES, 01/02) Uncoded Allergies: CORTICOSTERIODS (Allergy, Severe, ERYTHEMA MULTIFORME, 01/02/17) Past Anesthesia History Anesthesia History: Denies:: Abnormal Airway, Anesthesia Reactions, Difficult Intubation, Fam Anesthesia Reaction, Fam Malignant Hypertherm, Malignant Hyperthermia Diabetes History Hx Diabetes?: No MRSA MRSA: No Medications Hypertension Medication: Yes Home Meds Incl Beta Jeanette: Yes Date Beta Jeanette Taken: Feb 17, 2017 Time Beta Jeanette Taken: 0500 Active Scripts oxyCODONE-Acetaminophen 10-325 mg 1 Each Tablet1 Tab PO Q4-6H PRN For Pain #90 TABLET Prov:Bakari Sherman PA-C 01/08/17 [Aspirin] 325 MG TABLET No Conflict [id number] Mg PO BID DVT prophylaxis #1 BOTTLE Prov:Bakari Sherman PA-C 01/08/17 Reported Medications [Antiobiotic] No Conflict Check1 Tab PO QID 02/17/17 Fentanyl 25 mcg/hr Patch 1 Each Patch.[id number] Mcg TRANSDERM Q72H 10/12/16 Allopurinol 300 Mg [id number] Mg PO MORNING 10/12/16 Quetiapine Fumarate 200 Mg [id number] Mg PO HS 10/12/16 Quetiapine Fumarate 200 Mg [id number] Mg PO MORNING 10/12/16 Divalproex ER 500 Mg Tab.er.[id number] Mg PO MORNING 10/12/16 Atenolol 25 Mg [id number] Mg PO DAILY 10/12/16 Discontinued Scripts Hydroxyzine Pamoate (HydrOXYzine Pamoate)25 Mg [id number] Mg PO Q6H PRN restlessness #30 CAPSULE Prov:Bakari Sherman PA-C 01/08/17 History History of ENT Problems?: Yes HEENT History: Positive for:: Sinus Problem (seasonal allergies) Denies:: Abnormal Airway Difficult Intubation Dysphagia Hearing Problem TMJ Denture Type: Full- Upper Full- Lower Hx of Heart Problems?: Yes Cardiovascular History: Positive for:: Edema (Ankle Swelling) Hypertension Irregular Heartbeat (PVC's) Denies:: AICD Abdominal Aortic Aneurism Atrial Fibrillation Cardiac Surgery Chest Pain Congestive Heart Failure Heart Murmur Pacemaker Rheumatic Fever Thrombophlebitis Hx of Respiratory Problem?: No Respiratory History: Denies:: Asthma COPD Chest Surgery Dyspnea Emphysema Hemoptysis Oxygen Administration Pneumonia Pulmonary Embolism Tuberculosis Use of C-PAP Machine Hx Neurologic Problems?: Yes Neurological History: Positive for:: Dizziness (?Seizure-was in psychosis/ hospitalized 4 yrs ago on psych. unit) Seizures (poss seizure) Denies:: Alzheimer's Disease CVA Dementia Headaches Multiple Sclerosis Parkinson's Disease (benign essential tremor) Hx of GI Problems?: Yes Gastrointestinal History: Positive for:: Gastroesphageal Reflux Heartburn Rectal Bleeding (hemorrhoidal) Denies:: Cirrhosis Diverticulitis Gastrointestinal Bleeding Hepatitis Hiatal Hernia Hx of Problems?: Yes Genitourinary History: Positive for:: Kidney Stones (past hx bladder stones, litholapaxy) Urinary Tract Infection (Hx of) Denies:: HX of Hemodialysis HX of Peritoneal Dialysis: No Female Hx: Denies:: Currently (HYSTERECTOMY) Endometriosis Pelvic Inflammatory Problems with Breasts? Skin History: Positive for:: History Skin Disorders? (wound suture abscess) Denies:: Pressure Ulcers Hx Musculoskeletal Problems?: Yes Musculoskeletal History: Positive for:: Degenerative Joint Joint Replacement (left total knee) Musculoskeletal Trauma (left total knee 12/2016- suture abscess current admission problems) Denies:: Back Injury Systemic Lupus Hx of Psycho/Social Problems?: Yes Psycho Social History: Positive for:: Anxiety Bipolar Disorder (HX OF HOSPITALIZATION-CURRENTLY SEEN @ [facility]) Hx Depression Denies:: Suicide Attempt Hx Surgeries?: Yes (MULT HAND,FINGER & FOOT SURGERIES,KNEE SCOPE,JANAE,HYST, PUNCTAL PLUGS,LITHO) Hx Any Other Health Problems?: Yes Other History: Positive for:: Hospitalization (Psychosis) Denies:: Cancer Endocrine Disease Thyroid Disease History Blood Transfusions: Denies:: Blood Transfusions Hx Diabetes: No Hx Alcohol Use: NoHx Substance Use: No Smoking Status: Former Smoker Have You Smoked inLast 12 mo: Yes Stop/Bang Treated for Sleep Apnea?: No Do You Have a CPAP Machine?: No S-Snoring: Do You Snore Loudly: No T-Tired: feel tired, fatigued: No O-Obsered: Observed not breath: No P-Blood Pressure: treated: Yes B- Body Mass Index > 35 kg/m2: No A- Age over 50: Yes N- Neck Large Circumference: No G- Gender Male: No BREEZY Total Score: 2 BREEZY Risk Assessment: Low Risk, <3 Yes Risk Assessment Category Category 1A: Patient has history of documented sleep apnea, and HAS NOT received any narcotic, sedative or anesthesia administration during this stay. Category 1B: Patient has history of documented sleep apnea, and HAS received any narcotic , sedative or anesthesia administration during this stay Category 2: Patient has SUSPECTED Obstructive Sleep Apnea, and HAS received any narcotic , sedative or anesthesia administration during this stay. Category 3: Patient has SUSPECTED Obstructive Sleep Apnea and HAS NOT received narcotic, sedative or anesthesia administration during this stay. Category 4: Outpatient in Procedural Areas with known sleep apnea or who screen positive for High Risk via the STOP/BANG questionnaire. Exam Exam Vital Signs Vital Signs Date Time Temp Pulse Resp B/P Pulse Ox O2 Delivery O2 Flow Rate FiO2 02/17/17 13:44 36.3 79 16 130/66 97 Room Air General Appearance: Oriented X3 HEENT/AIRWAY: MP 2 Lungs: Normal Air Movement Heart: Regular Rate/Rhythm Meds/Labs/Diagnostics Admission Meds Current Medications Lactated Ringer's (Lr) 1,000 ml @ ud STK-MED ONCE IV Last administered on t 14:11; Start 02/17/17 at 14:11; Stop 02/17/17 at 14:12; Status DC Plan Impression Patient chart reviewed, patient interviewed and anesthestic plan with risks, benefits, and alternatives discussed, and informed consent obtained. NPO Status: 02/17 ASA Physical Status: ASA2 Mod Systemic Disease Anesthetic Plan: GA Bene/Risks/Altern/Consents: Yes HP Complete Prior to Induction: Yes Magno Godwin MD Feb 17, 2017 14:30
[2017-02-17] MEDS ORDERED: Acetaminophen IV 1,000 MG in IV Premix 1 EACH IV PRN (15:20)
[2017-02-17] MEDS ORDERED: oxyCODONE-Acetamin 5-325 mg Tablet PO PRN (15:20)
--- NOTE | 2017-02-17 15:39 | OP ---
[address] [address] OPERATIVE REPORT PATIENT: HUSAM GARCIA : 1955 MR#: [id number] ADMIT: 02/17/2017 JOB ID: [id number] DATE OF SURGERY: 02/17/2017 PREOPERATIVE DIAGNOSIS(ES): Left knee suture abscess. POSTOPERATIVE DIAGNOSIS(ES): Left knee suture abscess. PROCEDURE: Left knee irrigation and debridement with removal of suture abscess and foreign material. SURGEON: Dennis Dhaliwal DO. ANESTHESIA: LMA general. INDICATIONS: The patient is a 61-year-old female, who is approximately six weeks status post left total knee arthroplasty, who had been doing well, but developed an area of drainage at the superior aspect of her incision with redness and was concerned by this. We discussed treatment options and she wished to proceed with an irrigation and debridement in the operating room, which I felt was the safest course of action. We discussed risks, benefits, and possible complications of surgery. All questions were answered and she wished to proceed. PROCEDURE IN DETAIL: The patient is brought to the operating room. She was given an LMA general anesthetic. The left lower extremity was sterilely prepped and draped. The area of drainage and abscess was extended slightly proximally and distally, opening the area about 1.5 x 1.5 cm in size. I then used a rongeur to remove the necrotic and infected-appearing material. There was a clear loop of suture consistent with the V-Loc suture loop, which was removed and sent for culture. The wound was then irrigated and packed open with quarter-inch Iodoform packing. The patient tolerated the procedure well. Depth of the abscess was about 1 cm. BLOOD LOSS: Minimal. POSTOPERATIVE PROTOCOL: The patient will maintain her dressing and packing for the next two days and follow up in the clinic for removal of the packing and repacking with a nurse visit. She is to continue on Keflex 500 mg six times daily for 10 more days and then follow up in [facility] next week.
--- NOTE | 2017-02-18 10:20 | PCM.ANEP1 ---
Post Anesthesia Phase 1 PACU Phase 1 Assessment Level of Alertness: Awake, talking Pain: No Nausea or Vomiting: No Oxygen Delivery: Room Air Lungs: Normal Air Movement Magno Godwin MD Feb 18, 2017 10:20
--- NOTE | 2017-02-18 10:20 | PCM.ANEP2 ---
Post Anesthesia Evaluation ASA/CMS Post Anesthesia VS in Patient's Normal Range?: Yes Resp Stable; Airway Patent?: Yes CV Function & Hydration Stable: Yes Mental Status Recovered?: Yes Pain control Satisfactory?: Yes N/V Control Satisfactory?: Yes Magno Godwin MD Feb 18, 2017 10:20
== END 2017-02-17 23:59 | disposition home or self-care (01) ==
LOC: SAS 13:12
PROVIDERS: ATTEND Orthopaedic Surgery
DX: L02.416 Cutaneous abscess of left lower limb (principal); T84.54XA Infection and inflammatory reaction due to internal left knee prosthesis, initial encounter; F31.9 Bipolar disorder, unspecified; M05.9 Rheumatoid arthritis with rheumatoid factor, unspecified; G89.29 Other chronic pain; M19.90 Unspecified osteoarthritis, unspecified site; H52.00 Hypermetropia, unspecified eye; I10 Essential (primary) hypertension; F41.9 Anxiety disorder, unspecified; E78.00 Pure hypercholesterolemia, unspecified; Z96.652 Presence of left artificial knee joint; Z79.82 Long term (current) use of aspirin; Z87.891 Personal history of nicotine dependence
CPT/HCPCS: 10060; 87070; 87075; 87077; 87186; 87205; J0690; J1885; J3010; J7120

== ENCOUNTER → 2017-05-22 | Day surgery (SDC) | payer OTHER ==
[~2017-05-22] VITALS: Ht 162.6 cm; Wt 76.8 kg
[~2017-05-22] MED LIST changes: -ALLO300T2 PO; -Aspirin-Expunged Drug, Do Not Renew! PO; +Bupivacaine-MPF 0.5% 30 mL Inj INFILTRATE ONE; +Clindamycin 600 mg/50 mL D5W Premix IV ONE; +Clindamycin Inj 600 MG in IV Premix 1 EACH IV ONE; +DEP500ER PO; +Dexamethasone 4 mg/mL Inj IVPUSH PRN; +Dexamethasone 4 mg/mL Inj ONE; +EPHEDrine Sulfate 50 mg/mL Inj IVPUSH PRN; +FENT1PAT11 TRANSDERM; -HYDR-3797 PO; +Ketamine 10 mg/mL 20 mL Inj ONE; +Lactated Ringer's 1,000 ML IV SCH; +Lactated Ringer's 500 ML IV PRN; +MetoCLOpramide 5 mg/mL 2 mL Inj IVPUSH PRN; +Ondansetron 2 mg/mL 2 mL Inj IVPUSH PRN; +Ondansetron 2 mg/mL 2 mL Inj ONE; +Phenylephrine 10,000 mCg/mL Inj IVPUSH PRN; +Propofol 10,000 mCg/mL 20 mL Inj ONE; +QUET200T PO; +QUET400T PO; +SULF1TAB7 PO; +fentaNYL-PF 50 mCg/mL 2 mL Inj ONE
--- NOTE | 2017-05-22 07:58 | PCM.HPANE ---
Patient Data Surgeon Admitting Provider: Attending Provider:Wale Mendoza DPM Primary Care Physician:Param Mendoza MD Other Provider:AssDeisy hernandezTerrell Anesthesia Reason for Visit Right Toe Cellulitis Ht/WT & BMI Height (Feet): 5 Height (Inches): 3 Weight (Kilograms): 65 Body Mass Index 25.00 Allergies Coded Allergies: Penicillins (Verified Allergy, Severe, RASH. CAN HAVE ANCEF, 05/15/17) clarithromycin (Verified Adverse Reaction, Severe, N&V, 01/02/17) cyclobenzaprine (Verified Adverse Reaction, Severe, NAUSEA, 05/15/17) morphine (Verified Adverse Reaction, Severe, N&V, 05/15/17) zolpidem (Verified Adverse Reaction, Severe, PSYCHOSIS,MENTAL ISSUES, 05/15) Uncoded Allergies: CORTICOSTERIODS (Allergy, Severe, ERYTHEMA MULTIFORME, 01/02/17) Past Anesthesia History Anesthesia History: Denies:: Abnormal Airway, Anesthesia Reactions, Difficult Intubation, Fam Anesthesia Reaction, Fam Malignant Hypertherm, Malignant Hyperthermia Diabetes History Hx Diabetes?: No MRSA MRSA: No Medications Home Meds Incl Beta Jeanette: Yes (ATENOLOL) Date Beta Jeanette Taken: May 20, 2017 Time Beta Jeanette Taken: 20:00 Active Scripts oxyCODONE-Acetaminophen 10-325 mg 1 Each Tablet1 Tab PO Q4-6H PRN For Pain #90 TABLET Prov:Bakari Sherman PA-C 01/08/17 Reported Medications Sulfamethoxazole/Trimeth 800-160 mg (Bactrim DS)1 Each Tablet1 Tablet PO BID Ref 0 05/15/17 Fentanyl 25 mcg/hr Patch 1 Each Patch.[id number] Mcg TRANSDERM Q72H 10/12/16 Quetiapine Fumarate 200 Mg Rzzazo172 Mg PO HS 10/12/16 Quetiapine Fumarate 200 Mg Oodete722 Mg PO MORNING 10/12/16 Divalproex ER 500 Mg Tab.er.39q370 Mg PO MORNING 10/12/16 Atenolol 25 Mg Lvvcoi35 Mg PO DAILY 10/12/16 History History of ENT Problems?: Yes HEENT History: Positive for:: Sinus Problem (seasonal allergies) Denies:: Abnormal Airway Difficult Intubation Dysphagia Hearing Problem TMJ Denture Type: Full- Upper Full- Lower Teeth Condition: No Teeth Hx of Heart Problems?: Yes Cardiovascular History: Positive for:: Edema (Ankle Swelling) Hypertension Irregular Heartbeat (PVC's) Denies:: AICD Abdominal Aortic Aneurism Atrial Fibrillation Cardiac Surgery Chest Pain Congestive Heart Failure Heart Murmur Pacemaker Rheumatic Fever Thrombophlebitis Other Cardiac History: HX OF THROMBOCYTOPENIA-RESOLVED LAST VISIT TO DR. PRITCHARD 11/2016 Hx of Respiratory Problem?: No Respiratory History: Denies:: Asthma COPD Chest Surgery Dyspnea Emphysema Hemoptysis Oxygen Administration Pneumonia Pulmonary Embolism Tuberculosis Use of C-PAP Machine Hx Neurologic Problems?: Yes Neurological History: Positive for:: Dizziness (?Seizure-was in psychosis/ hospitalized 4 yrs ago on psych. unit) Denies:: Alzheimer's Disease CVA Dementia Headaches Multiple Sclerosis Parkinson's Disease (benign essential tremor) Seizures (pt stated no seizures) Other Neurological Pertinent: CHRONIC PAIN SYNDROME Hx of GI Problems?: Yes Hx of Problems?: Yes Genitourinary History: Positive for:: Urinary Tract Infection (Hx of) Denies:: HX of Hemodialysis Kidney Stones (past hx bladder stones, litholapaxy) HX of Peritoneal Dialysis: No Female Hx: Denies:: Currently Endometriosis Pelvic Inflammatory Problems with Breasts? Skin History: Positive for:: History Skin Disorders? (INFECTED RT TOE/ CELLULITIS) Denies:: Pressure Ulcers Hx Musculoskeletal Problems?: Yes Musculoskeletal History: Positive for:: Degenerative Joint Joint Replacement (S/P LT TKA W/ POST OP ABCESSED SUTURE S/P I&D) Musculoskeletal Trauma (S/P KNEE SCOPE,ORIF RT FOOT,MULT HAND/FINGER/FOOT PROCEDURES) Osteoarthritis Rheumatoid Arthritis (SEES DR. BREWER) Denies:: Back Injury Systemic Lupus Hx of Psycho/Social Problems?: Yes Psycho Social History: Positive for:: Anxiety Bipolar Disorder (HX OF HOSPITALIZATION-CURRENTLY SEEN @ [facility]) Hx Depression Denies:: Suicide Attempt Hx Surgeries?: Yes (MULT HAND,FINGER & FOOT SURGERIES,KNEE SCOPE,JANAE,HYST, PUNCTAL PLUGS,LITHO) Hx Any Other Health Problems?: Yes Other History: Positive for:: Hospitalization (Psychosis) Denies:: Cancer Endocrine Disease Thyroid Disease History Blood Transfusions: Denies:: Blood Transfusions Hx Diabetes: No Hx Alcohol Use: NoHx Substance Use: No Smoking Status: Former Smoker Have You Smoked inLast 12 mo: Yes Stop/Bang Treated for Sleep Apnea?: No Do You Have a CPAP Machine?: No S-Snoring: Do You Snore Loudly: No T-Tired: feel tired, fatigued: No O-Obsered: Observed not breath: No P-Blood Pressure: treated: Yes B- Body Mass Index > 35 kg/m2: No A- Age over 50: Yes N- Neck Large Circumference: No G- Gender Male: No BEREZY Total Score: 2 Risk Assessment Category Category 1A: Patient has history of documented sleep apnea, and HAS NOT received any narcotic, sedative or anesthesia administration during this stay. Category 1B: Patient has history of documented sleep apnea, and HAS received any narcotic , sedative or anesthesia administration during this stay Category 2: Patient has SUSPECTED Obstructive Sleep Apnea, and HAS received any narcotic , sedative or anesthesia administration during this stay. Category 3: Patient has SUSPECTED Obstructive Sleep Apnea and HAS NOT received narcotic, sedative or anesthesia administration during this stay. Category 4: Outpatient in Procedural Areas with known sleep apnea or who screen positive for High Risk via the STOP/BANG questionnaire. Exam Exam General Appearance: Alert, Oriented X3, Cooperative, No Acute Distress HEENT/AIRWAY: MP 2 Lungs: Clear to Auscultation, Normal Air Movement Heart: Exam Unremarkable, Regular Rate/Rhythm, No Murmurs/Rubs/Gallops Plan Impression Patient chart reviewed, patient interviewed and anesthestic plan with risks, benefits, and alternatives discussed, and informed consent obtained. ASA Physical Status: ASA2 Mod Systemic Disease Anesthetic Plan: GA Bene/Risks/Altern/Consents: Yes HP Complete Prior to Induction: Yes Dakotah Naik MD May 22, 2017 07:58
[2017-05-22] MEDS: Lactated Ringer's 1,000 ML IV SCH ×2 (11:22→14:12)
[2017-05-22 11:44] VITALS: BP 126/69; PULSE 72; RESP 16; O2SAT 96
[2017-05-22 16:01] VITALS: BP 124/69; PULSE 72; RESP 12; O2SAT 98
[2017-05-22 16:10] VITALS: BP 125/66; PULSE 72; RESP 14; O2SAT 99
[2017-05-22 16:15] VITALS: BP 130/71; PULSE 72; RESP 14; O2SAT 97
[2017-05-22 16:20] VITALS: BP 139/65; PULSE 68; RESP 14; O2SAT 97
[2017-05-22] MEDS: fentaNYL-PF 50 mCg/mL 2 mL Inj IVPUSH PRN ×3 (16:25→16:40)
[2017-05-22 17:25] VITALS: BP 117/64; PULSE 65; RESP 16; O2SAT 94
--- NOTE | 2017-05-25 13:17 | PCM.ANEP1 ---
Post Anesthesia PACU Phase 1 Assessment Anesthetic Administered: GA Level of Alertness: Awake, talking RAVI's with Equal Strength: Yes Pain: No Nausea or Vomiting: No CV Function & Hydration Stable: Yes Airway Device: Oralpharangeal Airway Oxygen Delivery: Simple Mask Lungs: Clear to Auscultation, Normal Air Movement Dermatome Level: Full Sensation PACU Phase 2 Assessment Complications: No Follow up Care: No Patient Instructions Provided: N/A Dakotah Naik MD May 25, 2017 13:17
--- NOTE | 2017-05-28 09:32 | PATH ---
SURGICAL PATHOLOGY Attending Physician:Wale Mendoza, CASE STATUS: Signed Out PATIENT NAME: HUSAM GARCIA PID: [id number] : 1955 DATE COLLECTED:05/22/2017 00:00 SPECIMEN: 1: Toe(s), Amputation, Non-Traumatic 2: Bone, Biopsy CLINICAL HISTORY: RIGHT FIRST METATARSAL PHALANGEAL JOINT CELLULITIS 1). RIGHT GREAT TOE 2). RIGHT FIRST METATARSAL BONE FINAL DIAGNOSIS: 1.RIGHT GREAT TOE: TOE WITH CELLULITIS AND METAL HARDWARE. NO OSTEOMYELITIS IDENTIFIED. 2.RIGHT FIRST METATARSAL BONE: BONE AND SOFT TISSUE WITH CELLULITIS AND METAL HARDWARE. NO OSTEOMYELITIS IDENTIFIED. ICD10 L03.031 GROSS DESCRIPTION: The specimens are received in formalin, labeled the patient's name, and sublabeled as the following: (1) right great toe; of her brain 2) right first metatarsal bone. (1) The specimen consists of a resected toe (4.5 cm AP, 3.4 cm SI, 2.8 cm ML). The toenail is present and partially covered in pink nail upper sorbian. The skin is persaud-pink smooth and shiny. The soft tissue is persaud-charlton and contains a silver colored metal device embedded in the tissue. The bone is hard and cannot be sliced with a scalpel. No nodules, masses or lesions are identified. Ink code: black-superior; orange-inferior; purple-bone resection margin. Section code: (1A) skin and soft tissue resection margins, inside technical sales representative; (1B) bone resection margin; (1C) toe, serially sectioned, inside technical sales representative. Note: The bone section has been a calcified. (2) The specimen consists of an oriented piece of bone ( 2.5 x 1.5 x 0.9 cm) containing a silver colored metal device implanted within the tissue. The bone is hard and cannot be sliced with a scalpel. The bone cut surface is persaud-yellow and unremarkable. Ink code: black-resection margin. Section code: (2A) bone resection margin and inside technical sales representative. Note: The bone sections have been a calcified. 05/23/17 JM MICRO DESCRIPTION: See diagnosis. ICD-9 CODES: CPT CODES: 1: 32609, 87595 2: 46135, 30417 Electronically Signed Out Nina Tierney MD [facility] [address], [place] [address] Technical component performed at [facility], [address], [place], [address]
--- NOTE | 2017-08-13 09:52 | PCM.PODPO ---
Podiatry Operative Report Date of Service: May 22, 2017 Date of Service May 22, 2017 Pre Operative Diagnosis Osteomyelitis right hallux Retained orthopedic hardware right first metatarsal phalangeal joint Hallux varus right foot Post Operative Diagnosis Same as preoperative diagnoses Procedure Removal of internal fixation Amputation of right great toe and partial first metatarsal amputation Surgeon Surgeon: Wale Mendoza DPM Assistants: None Indication for Procedure Osteomyelitis of the right great toe Findings Osteomyelitis of right great toe Details of Procedure Patient was identified in the preoperative holding area comorbidities and allergies were identified and thoroughly discussed. The patient was transported into the operating room and placed on the operating room table in the normal supine position. The patient was then placed under general anesthesia by the anesthesia service. The patient was then prepped and draped in the normal aseptic technique. A preoperative Ibarra type block was given around the first metatarsal base. A #15 blade was then utilized to make a racquet style incision extending from the dorsum of the first metatarsal to the base of the great toe extending circumferentially around the base of the great toe. Sharp dissection was carried directly down to bone soft tissue was then reflected both medially and laterally. This wound was copiously flushed with large amounts of normal saline. Sharp dissection was performed until all internal fixation was clearly identified. Internal fixation was removed utilizing the appropriate screwdriver until all internal fixation from the first metatarsal had been removed. The first metatarsophalangeal joint was noted to be nonunited and the right hallux was amputated at the first metatarsophalangeal joint nonunion site. Inspection of the distal aspect of the first metatarsal and first metatarsophalangeal joint nonunion site revealed soft necrotic bone. A large Rongeur and osteotome were then utilized to remove all necrotic and nonviable bone from the distal aspect of the first metatarsal shaft. This wound was copiously flushed with large amounts of normal saline. Deep closure of this incision site was then performed utilizing number 3. 0 Vicryl and skin closure was performed utilizing number 3. 0 Prolene. No consultations occurred during this procedure. The amputated right great toe and distal first metatarsal were sent for pathologic identification. The wound was then dressed with Adaptic sterile 4 x 4 gauze Kerlix and a loosely applied Victorino bandage. Grafts, Implants: None Complications There were no periprocedural complications identified. Condition Stable Anesthetic Administered: GA Catheters: None Output, Estimated Blood Loss: 20 Blood Admin during surgery: No Surgical Cast or Splint: None Surgical Specimen Removed: No Specimen sent to Pathology: No Post Operative Plan Elevate right lower extremity Partial weightbearing to the right heel with limited activity Keep dressing clean dry and intact Follow-up in 1 week Wale Mendoza DPM Aug 13, 2017 09:52
== END | disposition home or self-care (01) ==
LOC: SAS 11:14
PROVIDERS: ATTEND Podiatrist Foot & Ankle Surgery
DX: L03.031 Cellulitis of right toe (principal); T84.84XA Pain due to internal orthopedic prosthetic devices, implants and grafts, initial encounter; T84.213A Breakdown (mechanical) of internal fixation device of bones of foot and toes, initial encounter; I10 Essential (primary) hypertension; G89.4 Chronic pain syndrome; F31.9 Bipolar disorder, unspecified; M89.471 Other hypertrophic osteoarthropathy, right ankle and foot; M05.9 Rheumatoid arthritis with rheumatoid factor, unspecified; M19.90 Unspecified osteoarthritis, unspecified site; F41.8 Other specified anxiety disorders; Z96.652 Presence of left artificial knee joint; Z87.891 Personal history of nicotine dependence
CPT/HCPCS: 20670; 28810; J1100; J2250; J2405; J3010; J7120

== ENCOUNTER → 2017-07-30 | Day surgery (SDC) | payer OTHER ==
[~2017-07-30] VITALS: Ht 160 cm; Wt 83.8 kg
[2017-07-30] VITALS (8 sets, daily range): BP systolic 110–129; BP diastolic 57–78; PULSE 75–86; RESP 12–25; O2SAT 90–96
[~2017-07-30] MED LIST changes: -Bupivacaine-MPF 0.5% 30 mL Inj INFILTRATE ONE; -Clindamycin 600 mg/50 mL D5W Premix IV ONE; -Clindamycin Inj 600 MG in IV Premix 1 EACH IV ONE; -DIVA500T14 PO; -Dexamethasone 4 mg/mL Inj ONE; -FENT1PAT7 TRANSDERM; +HYDROmorphone 1 mg/mL Inj IVPUSH PRN; +Lidocaine 1%-Epi 1:100,000 20 mL Inj INFILTRATE ONE; -Ondansetron 2 mg/mL 2 mL Inj ONE; -QUET200T58 PO; -QUET400T PO; -SULF1TAB7 PO; +fentaNYL-PF 50 mCg/mL 2 mL Inj IVPUSH PRN; +oxyCODONE-Acetamin 5-325 mg Tablet PO PRN
[2017-07-30] MEDS: Lactated Ringer's 1,000 ML IV SCH ×2 (09:29→10:17)
[2017-07-30] MEDS: Vancomycin Inj 1,000 MG in IV Premix 1 EACH IV SCH ×2 (09:29→10:00)
--- NOTE | 2017-07-30 11:40 | PCM.HPANE ---
Patient Data Date of Service: Jul 30, 2017 Surgeon Admitting Provider: Attending Provider:Alcides Ingram DO Primary Care Physician:Param Mendoza MD Other Provider:Cristopher Conklin Anesthesia Reason for Visit Left Finger Arthritis Ht/WT & BMI Height (Feet): 5 Height (Inches): 3.00 Weight (Kilograms): 83.800 Body Mass Index 32.00 Allergies Coded Allergies: Penicillins (Verified Allergy, Severe, RASH. CAN HAVE ANCEF, 07/27/17) morphine (Verified Adverse Reaction, Severe, N&V, 07/27/17) Uncoded Allergies: CORTICOSTERIODS (Allergy, Severe, ERYTHEMA MULTIFORME, 01/02/17) Past Anesthesia History Anesthesia History: Positive for:: Fam Anesthesia Reaction (sister), Denies:: Abnormal Airway, Anesthesia Reactions, Difficult Intubation, Fam Malignant Hypertherm, Malignant Hyperthermia Diabetes History Hx Diabetes?: No MRSA MRSA: No Medications Hypertension Medication: Yes (Atrnolol) Home Meds Incl Beta Jeanette: Yes (ATENOLOL) Date Beta Jeanette Taken: Jul 30, 2017 Time Beta Jeanette Taken: 0745 Reported Medications Quetiapine Fumarate (Seroquel)200 Mg Uhrcgx680 Mg PO QAM Ref 0 07/27/17 Quetiapine Fumarate (Seroquel)200 Mg Xryoyc072 Mg PO QPM Ref 0 07/27/17 oxyCODONE-Acetaminophen 10-325 mg 1 Each Tablet2 Tablet PO Q6H PRN For Pain Ref 0 07/27/17 Fentanyl 100 mcg/hr Patch 1 Each Patch.td721 Patch TRANSDERM Q3D Ref 0 07/27/17 Divalproex ER (Depakote ER)500 Mg Srqydz148 Mg PO DAILY Ref 0 *DAILY USE ONLY* Swallowed whole without chewing to avoid local irritation of the mouth and throat. 07/27/17 Atenolol 25 Mg Kjljou29 Mg PO DAILY #30 TABLET Ref 0 07/27/17 Discontinued Reported Medications Quetiapine Fumarate (Seroquel)200 Mg Ayykcc515 Mg PO QAM Ref 0 07/27/17 Quetiapine Fumarate (Seroquel)400 Mg Howjbe947 Mg PO QPM Ref 0 07/27/17 Sulfamethoxazole/Trimeth 800-160 mg (Bactrim DS)1 Each Tablet1 Tablet PO BID Ref 0 05/15/17 Fentanyl 25 mcg/hr Patch 1 Each Patch.ho4396 Mcg TRANSDERM Q72H 10/12/16 Quetiapine Fumarate 200 Mg Mcrstz200 Mg PO HS 10/12/16 Quetiapine Fumarate 200 Mg Vjbxdg591 Mg PO MORNING 10/12/16 Divalproex ER 500 Mg Tab.er.67t010 Mg PO MORNING 10/12/16 Atenolol 25 Mg Poknvx10 Mg PO DAILY 10/12/16 Discontinued Scripts oxyCODONE-Acetaminophen 10-325 mg 1 Each Tablet1 Tab PO Q4-6H PRN For Pain #90 TABLET Prov:Bakari Sherman PA-C 01/08/17 History History of ENT Problems?: Yes HEENT History: Positive for:: Sinus Problem (seasonal allergies) Denies:: Abnormal Airway Difficult Intubation Dysphagia Hearing Problem TMJ Denture Type: Full- Upper Full- Lower Teeth Condition: No Teeth Hx of Heart Problems?: Yes Cardiovascular History: Positive for:: Hypertension Irregular Heartbeat (PVC's) Denies:: AICD Abdominal Aortic Aneurism Atrial Fibrillation Cardiac Surgery Chest Pain Congestive Heart Failure Edema Heart Murmur Pacemaker Rheumatic Fever Thrombophlebitis Hx of Respiratory Problem?: No Respiratory History: Denies:: Asthma COPD Chest Surgery Dyspnea Emphysema Hemoptysis Oxygen Administration Pneumonia Pulmonary Embolism Tuberculosis Use of C-PAP Machine Use of Inhalers / NEBS Hx Neurologic Problems?: Yes Neurological History: Positive for:: Dizziness (?Seizure-was in psychosis/ hospitalized 4 yrs ago on psych. unit) Denies:: Alzheimer's Disease CVA Dementia Headaches Multiple Sclerosis Parkinson's Disease Seizures (pt stated no seizures) Hx of GI Problems?: Yes Hx of Problems?: No Genitourinary History: Denies:: HX of Hemodialysis Kidney Stones (past hx bladder stones, litholapaxy) Urinary Tract Infection HX of Peritoneal Dialysis: No Female Hx: Denies:: Currently Endometriosis Pelvic Inflammatory Problems with Breasts? Skin History: Denies:: History Skin Disorders? Pressure Ulcers Hx Musculoskeletal Problems?: Yes Musculoskeletal History: Positive for:: Degenerative Joint Joint Replacement (S/P LT TKA W/ POST OP ABCESSED SUTURE S/P I&D) Musculoskeletal Trauma (S/P KNEE SCOPE,ORIF RT FOOT,MULT HAND/FINGER/FOOT PROCEDURES) Osteoarthritis Rheumatoid Arthritis Denies:: Back Injury Systemic Lupus Hx of Psycho/Social Problems?: Yes Psycho Social History: Positive for:: Anxiety Hx Depression Denies:: Bipolar Disorder (HX OF HOSPITALIZATION-CURRENTLY SEEN @ [facility]) Suicide Attempt Hx Surgeries?: Yes (MULT HAND,FINGER & FOOT SURGERIES,KNEE SCOPE,JANAE,HYST, PUNCTAL PLUGS,LITHO) Hx Any Other Health Problems?: Yes Other History: Positive for:: Hospitalization (toe amputation) Denies:: Cancer Endocrine Disease Thyroid Disease History Blood Transfusions: Positive for:: Accept Blood Products? Denies:: Blood Transfusions Hx Diabetes: No Hx Alcohol Use: NoHx Substance Use: No Smoking Status: Former Smoker Have You Smoked inLast 12 mo: Yes Stop/Bang Treated for Sleep Apnea?: No Do You Have a CPAP Machine?: No S-Snoring: Do You Snore Loudly: No T-Tired: feel tired, fatigued: No O-Obsered: Observed not breath: No P-Blood Pressure: treated: No B- Body Mass Index > 35 kg/m2: No A- Age over 50: Yes N- Neck Large Circumference: No G- Gender Male: No BREEZY Total Score: 1 BREEZY Risk Assessment: Low Risk, <3 Yes Risk Assessment Category Category 1A: Patient has history of documented sleep apnea, and HAS NOT received any narcotic, sedative or anesthesia administration during this stay. Category 1B: Patient has history of documented sleep apnea, and HAS received any narcotic , sedative or anesthesia administration during this stay Category 2: Patient has SUSPECTED Obstructive Sleep Apnea, and HAS received any narcotic , sedative or anesthesia administration during this stay. Category 3: Patient has SUSPECTED Obstructive Sleep Apnea and HAS NOT received narcotic, sedative or anesthesia administration during this stay. Category 4: Outpatient in Procedural Areas with known sleep apnea or who screen positive for High Risk via the STOP/BANG questionnaire. Exam Exam Vital Signs Vital Signs Date Time Temp Pulse Resp B/P Pulse Ox O2 Delivery O2 Flow Rate FiO2 07/30/17 09:08 35.7 86 12 122/66 93 Room Air General Appearance: Alert, Oriented X3, Cooperative HEENT/AIRWAY: MP 2 Lungs: Clear to Auscultation Heart: Exam Unremarkable Meds/Labs/Diagnostics Admission Meds Current Medications Vancomycin/0.9 % Sod Chloride 1000 mg/Premix 200 ml @ 133.333 mls/hr PREOP IV Last administered on 07/30/17t 10:00; Start 07/30/17 at 06:00; Stop 07/30/17 at 19:00 Lactated Ringer's (Lr) 1,000 ml @ 120 mls/hr Q8H20M IV Last administered on t 10:17; Start 07/30/17 at 05:00; Stop 07/30/17 at 13:19 Plan Impression Patient chart reviewed, patient interviewed and anesthestic plan with risks, benefits, and alternatives discussed, and informed consent obtained. NPO per Anesth. Guidelines: Yes ASA Physical Status: ASA2 Mod Systemic Disease Anesthetic Plan: TIVA Bene/Risks/Altern/Consents: Yes HP Complete Prior to Induction: Yes Jayce Dwyer MD Jul 30, 2017 11:40
--- NOTE | 2017-07-30 13:52 | PCM.ANEP1 ---
Post Anesthesia PACU Phase 1 Assessment Vital Signs Vital Signs Date Time Temp Pulse Resp B/P Pulse Ox O2 Delivery O2 Flow Rate FiO2 07/30/17 13:37 75 17 116/57 93 Room Air 07/30/17 12:55 36.2 80 17 117/78 94 Room Air 07/30/17 12:50 78 13 110/72 96 Room Air 07/30/17 12:45 78 13 124/72 95 Room Air 07/30/17 12:40 78 15 119/68 92 Nasal Cannula 4 07/30/17 12:35 78 25 129/67 90 Nasal Cannula 4 07/30/17 12:30 36.6 82 15 118/69 90 Nasal Cannula 4 07/30/17 09:08 35.7 86 12 122/66 93 Room Air Anesthetic Administered: TIVA Level of Alertness: Awake, talking RAVI's with Equal Strength: Yes Pain: No Nausea or Vomiting: No CV Function & Hydration Stable: Yes Airway Device: Oxygen Delivery: Nasal Cannula Lungs: Clear to Auscultation PACU Phase 2 Assessment Patient Instructions Provided: N/A Jayce Dwyer MD Jul 30, 2017 13:52
--- NOTE | 2017-07-30 23:01 | OP ---
[address] [address] OPERATIVE REPORT PATIENT: HUSAM GARCIA : 1955 MR#: [id number] ADMIT: 07/30/2017 JOB ID: [id number] DATE OF SURGERY: 07/30/2017 PREOPERATIVE DIAGNOSIS(ES): 1. Left index finger distal interphalangeal arthritis. 2. Retained hardware from the left index finger proximal interphalangeal arthrodesis. POSTOPERATIVE DIAGNOSIS(ES): 1. Left index finger distal interphalangeal arthritis. 2. Retained hardware from the left index finger proximal interphalangeal arthrodesis. PROCEDURE: 1. Left index finger deep hardware removal. 2. Left index finger distal interphalangeal arthrodesis. SURGEON: Alcides Ingram DO. ANESTHESIA: General. HISTORY: The patient is a pleasant 61-year-old female with significant diffuse arthritis to her finger. She has had multiple arthrodeses performed previously at an outlying facility including multiple PIP arthrodeses. She presented to me with significant pain to her left index finger at the DIP joint, and we discussed the option for pain relief with the DIP arthrodesis procedure. Due to the tension band wire that was present for her PIP joint, this will likely need to be removed in order for the fixation with a retrograde screw. The patient understood the risks to include, but not be limited to, neurovascular injury, tendon injury, infection, failure of fixation, stiffness, persistent pain, all of which may require further intervention. Patient had all questions answered. Consent was signed and placed in the chart. PROCEDURE IN DETAIL: The patient was brought to the operating suite and placed upon the operating room table. Surgical time-out performed and everyone in the room was in agreement. After appropriate anesthesia was obtained, a left upper arm tourniquet was applied, and the left upper extremity was prepped and draped in a sterile fashion. Left upper extremity was then exsanguinated and tourniquet inflated to 250 mmHg. The patient's previous dorsal incision was curvilinear overlying the index finger, spanning the proximal interphalangeal joint. The same incision was utilized and a longitudinal incision was made through the previous incision through the dorsal extensor tendon to expose the hardware. The two K-wires were then removed manually followed by clipping the tension band wire which was removed in two pieces. Copious irrigation was then performed. The incision was then extended distally in a curvilinear fashion past the distal interphalangeal joint. The extensor tendon was tenotomized overlying the distal interphalangeal joint. Capsulotomy was then performed as well as release of the collaterals in order to expose the joint. Joint was then debrided of any residual cartilage and significant osteophyte until good bleeding bone was encountered. Multiple perforations with a K-wire to the middle phalanx head as well as the distal phalanx base was performed. This was followed by advancing a retrograde K-wire for a micro Ar[employer] headless cannulated screw. Position of the K-wire was verified under fluoroscopy. The pin was then overdrilled and the micro Arthrex headless cannulated screw was then advanced. Excellent purchase was achieved. Position of the screw as well as depression was verified with AP and lateral projections on fluoroscopy. The patient was then placed into a bulky soft dressing. ESTIMATED BLOOD LOSS: Less than 1 cc. COMPLICATIONS: None. DISPOSITION: The patient tolerated the procedure well. Anesthesia was reversed. The patient was transferred back to recovery. IMPLANTS: Micro headless cannulated screw from [employer]. POSTOPERATIVE PLAN: The patient is allowed to work on range of motion of the fingers but limit any lifting, pushing or pulling or forceful grasping until arthrodesis is completely consolidated. She will follow up in two weeks for suture removal and for repeat x-rays of the left index finger.
== END | disposition home or self-care (01) ==
LOC: SAS 08:42
PROVIDERS: ATTEND Orthopaedic Surgery
DX: M19.042 Primary osteoarthritis, left hand (principal); I10 Essential (primary) hypertension; E78.00 Pure hypercholesterolemia, unspecified; G89.4 Chronic pain syndrome; F31.9 Bipolar disorder, unspecified; F41.9 Anxiety disorder, unspecified; Z87.891 Personal history of nicotine dependence
CPT/HCPCS: 20680; 26860; 76000; C1713; J2704; J3010; J3370; J7120